=== PATIENT | male | born 1960 | race Caucasian/White ===

== ENCOUNTER 2021-10-26 20:29 | Emergency (ER) | payer OTHER ==
[2021-10-26 20:46] VITALS: BMI 21.2
[2021-10-27] MEDS ORDERED: ACETAMINOPHEN 500 MG TABLET (FP) PO ONE (01:06)
[2021-10-27] MEDS ORDERED: ACETAMINOPHEN 500 MG TABLET (FP) ONE (01:12)
[2021-10-27 03:03] VITALS: BP 127/84; PULSE 100; TEMP 98.1
== END 2021-10-27 06:30 | disposition home or self-care (01) ==
LOC: JER 20:29
DX: S09.90XA Unspecified injury of head, initial encounter (principal); W01.198A Fall on same level from slipping, tripping and stumbling with subsequent striking against other object, initial encounter
CPT/HCPCS: 70450-TC; 71250-TC; 72125-TC; 99285-25

== ENCOUNTER 2022-02-08 11:57 | Emergency (ER) | payer OTHER ==
[2022-02-08 12:16] VITALS: BP 102/72; PULSE 96; RESP 20; BMI 22.3
== END 2022-02-08 18:32 | disposition home or self-care (01) ==
LOC: JER 11:57
DX: S09.90XA Unspecified injury of head, initial encounter (principal); M25.512 Pain in left shoulder; W01.0XXA Fall on same level from slipping, tripping and stumbling without subsequent striking against object, initial encounter
CPT/HCPCS: 70450-TC; 72125-TC; 73030-TC-RT-FY; 99285-25